=== PATIENT | female | born 1950 | race African-American/Black ===

== ENCOUNTER 2022-05-04 12:04 | Emergency (ER) | payer MEDICARE ==
[2022-05-04 12:51] LABS: Absolute Lymphocytes (CBC) 1.4 K/uL (0.7-4.9); Lymphocytes % 16.7 % (15.3-44.8); MCV 89.4 fL (80-100); MPV 8.4 fL (7.6-11.3); RBC Red Blood Cell Count 3.91 M/uL (3.86-4.86)
--- NOTE | 2022-05-04 13:50 | RAD REPORT ---
EXAM DESCRIPTION: Selena Single View05/04/2022 1:15 pm CLINICAL HISTORY: Shortness of breath COMPARISON: none FINDINGS: Calcified granuloma left lung. Calcified hilar lymph nodes. The lungs appear clear of acute infiltrate. The heart is mildly enlarged IMPRESSION: No acute abnormalities displayed
--- NOTE | 2022-05-04 14:03 | ER ---
Nurse's Notes [facility] Name: Carmelita Singh Age: 72 yrs Sex: Female : 1950 Arrival Date: 05/04/2022 Time: 12:06 Bed 23 Private MD: Diagnosis: Shortness of breath;Abnormal electrocardiogram [ECG] [EKG] Presentation: 05/04 12:13 Chief complaint: EMS states: "at 0900 today the patient checked her BGL and it was 95. em6 she had a glass of orange juice and other food. 30 mins later she started feeling shortness of breath. she has history of Diabetes, hypertension and stroke. she took her once a week ozempic shot on 05/03/22. We checked BGL it was 325 her O2 on the monitor was 89 we put her on 3 L NC. started a 20 G in the Left AC. complains of chest pressure.". Coronavirus screen: Client denies travel out of the [place] in the last 14 days. Ebola Screen: Patient negative for fever greater than or equal to 101.5 degrees Fahrenheit, and additional compatible Ebola Virus Disease symptoms. Initial Sepsis Screen: Does the patient meet any 2 criteria? No. Patient's initial sepsis screen is negative. Does the patient have a suspected source of infection? No. Patient's initial sepsis screen is negative. Risk Assessment: Do you want to hurt yourself or someone else? Patient reports no desire to harm self or others. Onset of symptoms was May 04, 2022. 12:13 Acuity: SAW 2 em6 12:13 Method Of Arrival: EMS: [facility] em6 Triage Assessment: 12:19 General: Appears uncomfortable. Respiratory: Reports shortness of breath at rest. em6 Respiratory: the patient has moderate shortness of breath. Historical: - Allergies: 12:18 Aspirin; em6 12:18 metformin; em6 12:18 PENICILLINS; em6 - PMHx: 12:18 Diabetes mellitus; Hypertensive disorder; Stroke; em6 - PSHx: 12:18 hysterectomy; em6 - Immunization history:: Adult Immunizations up to date. - Social history:: Smoking status: Patient denies any tobacco usage or history of. Screenin:13 Abuse screen: Denies threats or abuse. Nutritional screening: No deficits noted. em6 Tuberculosis screening: No symptoms or risk factors identified. Fall Risk None identified. Assessment: 12:12 General: Appears uncomfortable, Behavior is cooperative. Pain: Complains of pain in em6 chest Pain does not radiate. Pain currently is 0 out of 10 on a pain scale. Quality of pain is described as pressure, Pain began 2 hours ago. Neuro: Level of Consciousness is awake, alert, obeys commands, Oriented to person, place, time, situation. Cardiovascular: Heart tones present Patient's skin is warm and dry. Rhythm is sinus rhythm. Respiratory: Reports shortness of breath at rest cough that is non-productive, Airway is patent Respiratory effort is even, labored, Respiratory pattern is regular, symmetrical, Breath sounds with wheezes bilaterally. GI: No signs and/or symptoms were reported involving the gastrointestinal system. : No signs and/or symptoms were reported regarding the genitourinary system. EENT: No signs and/or symptoms were reported regarding the EENT system. Derm: No signs and/or symptoms reported regarding the dermatologic system. Musculoskeletal: Circulation, motion, and sensation intact. Reports weakness in left leg usage of cane at the house. 13:10 Reassessment: No changes from previously documented assessment. Patient and/or family em6 updated on plan of care and expected duration. Pain level reassessed. Patient is alert, oriented x 3, equal unlabored respirations, skin warm/dry/pink. 14:10 Reassessment: No changes from previously documented assessment. Patient and/or family em6 updated on plan of care and expected duration. Pain level reassessed. Patient is alert, oriented x 3, equal unlabored respirations, skin warm/dry/pink. 15:10 Reassessment: Patient and/or family updated on plan of care and expected duration. Pain em6 level reassessed. Patient is alert, oriented x 3, equal unlabored respirations, skin warm/dry/pink. Patient states symptoms have improved. 16:10 Reassessment: No changes from previously documented assessment. Patient and/or family em6 updated on plan of care and expected duration. Pain level reassessed. Patient is alert, oriented x 3, equal unlabored respirations, skin warm/dry/pink. 16:26 Reassessment: report given to javid WELLS from [facility]. gave report to EMS provided em6 with SBAR and pertinent patients document. Vital Signs: 12:13 BP 136 / 82; Pulse 68; Resp 18; Pulse Ox 100% on 3 lpm NC; Weight 72.57 kg; Height 5 em6 ft. 3 in. (160.02 cm); Pain 0/10; 12:21 Temp 97.8(O); em6 13:00 BP 121 / 72; Pulse 59; Resp 20; Pulse Ox 100% on 2 lpm NC; em6 14:30 BP 136 / 75; Pulse 57; Resp 20; Pulse Ox 99% on 2 lpm NC; em6 14:38 Weight 69.4 kg (M); em6 15:15 BP 137 / 71; Pulse 58; Resp 14; Pulse Ox 100% on 2 lpm NC; em6 16:20 BP 149 / 71; Pulse 64; Resp 20; Pulse Ox 100% on 2 lpm NC; em6 14:38 Body Mass Index 27.10 (69.40 kg, 160.02 cm) em6 ED Course: 12:06 Patient arrived in ED. kj1 12:08 Keyur Mercedes DO is Attending Physician. ms3 12:11 Glory Martínez, RUSSELL is Primary Nurse. em6 12:12 Maintain EMS IV. Dressing intact. Good blood return noted. Site clean \\T\\ dry. Gauge \\T\\ em 6 site: 20G left AC. 12:18 Triage completed. em6 12:18 Arm band placed on. em6 12:20 Bed in low position. Call light in reach. Side rails up X2. certified coding specialist on. Pulse em6 ox on. NIBP on. Warm blanket given. 12:38 Basic Metabolic Panel Sent. em6 12:38 CBC with Diff Sent. em6 12:38 NT PRO-BNP Sent. em6 12:38 Troponin HS Sent. em6 13:17 XRAY Chest (1 view) In Process Unspecified. EDMS 14:13 Ptt, Activated Sent. em6 14:13 PT-INR Sent. em6 15:14 SARS RAPID Sent. em6 15:47 SARS RAPID Sent. em6 16:25 No provider procedures requiring assistance completed. Patient transferred, IV remains em6 in place. Administered Medications: 14:44 Drug: Heparin ([place] Drip) 12 units/kg/hr - (HEParin 01514 units, D5W 500 ml) em6 {Co-Signature: ll1 (Zahraa Alvarez RN).} Route: IV; Rate: calculated rate; Site: left antecubital; 16:24 Follow up: Rate change 800 units/hr; IV Status: Infusion continued upon transfer em6 14:44 Drug: Heparin ([place]-Bolus No thrombolytic) - HEParin 60 units/kg {Co-Signature: ll1 em6 (Zahraa Alvarez RN).} Route: IVP; Site: left antecubital; 15:15 Follow up: Response: No adverse reaction em6 Medication: 16:25 VIS not applicable for this client. em6 Outcome: 14:02 ER care complete, transfer ordered by MD. ms3 16:25 Transferred by ground EMS to [facility] [place], Transfer form completed. em6 16:25 Condition: stable 16:25 Instructed on the need for transfer, Demonstrated understanding of instructions. 16:28 Patient left the ED. em6 Signatures: Dispatcher [employer] EDMS Snehal Ervin kj1 Keyur Mercedes DO DO ms3 Glory Martínez, RN RN em6 Zahraa Alvarez RN ll1 Corrections: (The following items were deleted from the chart) 12:19 12:12 Respiratory: Airway is patent Respiratory effort is even, labored, Respiratory em6 pattern is regular, symmetrical, Breath sounds are clear bilaterally. em6 12:38 12:12 Respiratory: Reports shortness of breath at rest cough that is non-productive, em6 Airway is patent Respiratory effort is even, labored, Respiratory pattern is regular, symmetrical, Breath sounds are clear bilaterally. em6 16:27 12:12 Musculoskeletal: Circulation, motion, and sensation intact. em6 em6 16:28 12:12 Musculoskeletal: Circulation, motion, and sensation intact. Reports weakness in em6 left leg em6
--- NOTE | 2022-05-04 14:03 | EDPHYS ---
Physician Documentation [facility] Name: Carmelita Singh Age: 72 yrs Sex: Female : 1950 Arrival Date: 05/04/2022 Time: 12:06 Bed 23 Private MD: ED Physician Keyur Mercedes HPI: 05/04 12:42 This 72 yrs old Female presents to ER via EMS with complaints of Shortness Of Breath, ms3 High Blood Sugar. 12:42 The patient has shortness of breath at rest. Onset: The symptoms/episode began/occurred ms3 3 hour(s) ago. Duration: The symptoms are continuous, and are steadily getting worse. The patient's shortness of breath is aggravated by exertion, is alleviated by nothing. Associated signs and symptoms: Pertinent negatives: chest pain, fever. Severity of symptoms: At their worst the symptoms were moderate in the emergency department the symptoms are unchanged Pain is currently a 0 / 10. Historical: - Allergies: 12:18 Aspirin; em6 12:18 metformin; em6 12:18 PENICILLINS; em6 - PMHx: 12:18 Diabetes mellitus; Hypertensive disorder; Stroke; em6 - PSHx: 12:18 hysterectomy; em6 - Immunization history:: Adult Immunizations up to date. - Social history:: Smoking status: Patient denies any tobacco usage or history of. ROS: 12:42 Constitutional: Negative for fever, and chills. Neck: Negative for injury, pain, and ms3 swelling, Cardiovascular: Negative for chest pain, and palpitations. Abdomen/GI: Negative for abdominal pain, nausea, vomiting, diarrhea, and constipation, MS/Extremity: Negative for injury and deformity, Skin: Negative for injury, rash, and discoloration, Psych: Negative for depression, anxiety, suicide ideation, homicidal ideation, and hallucinations. 12:42 Respiratory: Positive for dyspnea on exertion, shortness of breath. 12:42 All other systems are negative. Exam: 12:28 ECG was reviewed by the Attending Physician. ms3 12:42 Constitutional: This is a well developed, well nourished patient who is awake, alert, ms3 and in no acute distress. Head/Face: Normocephalic, atraumatic. Neck: Trachea midline, no cervical lymphadenopathy. Supple, full range of motion without nuchal rigidity, or vertebral point tenderness. No Meningismus. Chest/axilla: Normal chest wall appearance and motion. Nontender with no deformity. Cardiovascular: Regular rate and rhythm with a normal S1 and S2. No gallops, murmurs, or rubs. Normal PMI, no JVD. No pulse deficits. 12:42 Respiratory: moderate respiratory distress is noted, Respirations: normal, Breath sounds: rales, that are moderate. Vital Signs: 12:13 BP 136 / 82; Pulse 68; Resp 18; Pulse Ox 100% on 3 lpm NC; Weight 72.57 kg; Height 5 em6 ft. 3 in. (160.02 cm); Pain 0/10; 12:21 Temp 97.8(O); em6 13:00 BP 121 / 72; Pulse 59; Resp 20; Pulse Ox 100% on 2 lpm NC; em6 14:30 BP 136 / 75; Pulse 57; Resp 20; Pulse Ox 99% on 2 lpm NC; em6 14:38 Weight 69.4 kg (M); em6 15:15 BP 137 / 71; Pulse 58; Resp 14; Pulse Ox 100% on 2 lpm NC; em6 16:20 BP 149 / 71; Pulse 64; Resp 20; Pulse Ox 100% on 2 lpm NC; em6 14:38 Body Mass Index 27.10 (69.40 kg, 160.02 cm) em6 MDM: 12:19 Patient medically screened. ms3 15:05 ED course: Discussed case with Dr Cheek and patient to be admitted to [place] [id number] Hospitalist. 15:19 Data reviewed: vital signs, nurses notes, lab test result(s), EKG, radiologic studies, me3 and as a result, I will transfer. Data interpreted: environmental monitoring specialist: rate is 53 beats/min, rhythm is sinus bradycardia. Counseling: I had a detailed discussion with the patient and/or guardian regarding: the historical points, exam findings, and any diagnostic results supporting the discharge/admit diagnosis, lab results, radiology results, the need to transfer to another facility. ED course: Discussed case with Dr Feliz and she accepts patient. Discussed plan for transfer with patient and her brother and they understand/ agree with plan.. 15:42 Differential diagnosis: CHF exacerbation, Chronic Obstructive Pulmonary Disease ms3 Myocardial Infarction pneumonia, Pneumothorax pulmonary edema. 05/04 12:20 Order name: Basic Metabolic Panel; Complete Time: 14:29 ms3 05/04 12:20 Order name: CBC with Diff; Complete Time: 13:43 ms3 05/04 12:20 Order name: NT PRO-BNP; Complete Time: 14:29 ms3 05/04 12:20 Order name: Troponin HS; Complete Time: 14:29 ms3 05/04 13:18 Order name: Glucose, Ancillary Testing; Complete Time: 13:33 EDMS 05/04 14:01 Order name: PT-INR; Complete Time: 15:03 ms3 05/04 12:20 Order name: XRAY Chest (1 view); Complete Time: 13:59 ms3 05/04 12:20 Order name: EKG; Complete Time: 12:20 ms3 05/04 12:20 Order name: Cardiac monitoring; Complete Time: 12:20 ms3 05/04 12:20 Order name: EKG - Nurse/Tech; Complete Time: 12:38 ms3 05/04 14:01 Order name: Ptt, Activated; Complete Time: 15:03 ms3 05/04 14:56 Order name: SARS RAPID ss 05/04 12:20 Order name: IV Saline Lock; Complete Time: 12:38 ms3 05/04 12:20 Order name: Labs collected and sent; Complete Time: 12:38 ms3 05/04 12:20 Order name: O2 Per Protocol; Complete Time: 12:38 ms3 05/04 12:20 Order name: O2 Sat Monitoring; Complete Time: 12:38 ms3 EC:28 Rate is 64 beats/min. Rhythm is regular. QRS [place] is Normal. TN interval is normal. QRS ms3 interval is normal. T waves are Inverted in leads I, II, III, aVF, V4, V5, V6. Clinical impression: NSR with ST depression laterally. Interpreted by me. Reviewed by me. Administered Medications: 14:44 Drug: Heparin ([place] Drip) 12 units/kg/hr - (HEParin 31301 units, D5W 500 ml) em6 {Co-Signature: ll1 (Zahraa Alvarez RN).} Route: IV; Rate: calculated rate; Site: left antecubital; 16:24 Follow up: Rate change 800 units/hr; IV Status: Infusion continued upon transfer em6 14:44 Drug: Heparin ([place]-Bolus No thrombolytic) - HEParin 60 units/kg {Co-Signature: ll1 em6 (Zahraa Alvarez RN).} Route: IVP; Site: left antecubital; 15:15 Follow up: Response: No adverse reaction em6 Disposition Summary: 05/04/22 14:02 Transfer Ordered Transfer Location: [facility] ms3 Reason: Higher level of care ms3 Condition: Stable ms3 Problem: new ms3 Symptoms: are unchanged ms3 Accepting Physician: (05/04/22 16:28) em6 Diagnosis - Shortness of breath ms3 - Abnormal electrocardiogram [ECG] [EKG] ms3 Forms: - Medication Reconciliation Form ms3 - SBAR form ms3 Signatures: Dispatcher [employer] EDMS Keyur Mercedes DO DO ms3 Glory Martínez, RN RN em6 Zahraa Alvarez RN ll1 Corrections: (The following items were deleted from the chart) 16:28 14:02 ms3 em6
[2022-05-04 14:09] LABS: Troponin High Sensitivity 27.9 (<58.9)
[2022-05-04] MEDS ORDERED: HEPARIN 5000 UNIT/ML 1 ML VIAL ONE (14:26)
[2022-05-04] MEDS ORDERED: HEPARIN/D5W 25,000 UNIT/500 ML BAG IV ONE (14:27)
[2022-05-04 14:35] LABS: Protime INR 1.08
[2022-05-04 16:04] LABS: SARS-CoV-2 Antigen Rapid Res Negative (Negative)
[2022-05-04 16:48] VITALS: TEMP 97.8
[2022-05-04 16:51] VITALS: O2SAT 100
[2022-05-04 16:53] VITALS: BP 149/71
--- NOTE | 2022-05-05 16:33 | EKG ---
Test Date: 2022-05-04 Test Time: 12:28:55 Edging Catcher: MEASUREMENT RESULTS: Intervals: Rate: 64 MN: 176 QRSD: 98 QT: 460 QTc: 474 [place]: P: 68 MN: 176 QRS: 8 T: 224 INTERPRETIVE STATEMENTS: Normal sinus rhythm Left ventricular hypertrophy with repolarization abnormality Cannot rule out Septal infarct, age undetermined Abnormal ECG No previous ECG available for comparison Electronically Signed On 05-05-22 16:32:37 ADOPTION WORKER by Jose Xie
== END 2022-05-04 16:28 | disposition short-term general hospital (02) ==
LOC: ER 12:04
DX: R94.31 Abnormal electrocardiogram [ECG] [EKG] (principal); Z20.822 Contact with and (suspected) exposure to COVID-19; E11.9 Type 2 diabetes mellitus without complications; I10 Essential (primary) hypertension; Z88.0 Allergy status to penicillin; Z88.6 Allergy status to analgesic agent; Z88.8 Allergy status to other drugs, medicaments and biological substances
CPT/HCPCS: 96365; 93005; 85025; 80048; 36415; 85610; 82947; 85730; 84484; 83880; 71045; 99285; 96366; 87811; J1644 ×2